=== PATIENT | female | born 1990 | race Caucasian/White ===

== ENCOUNTER 2020-06-02 15:04 | Emergency (ER) | payer MEDICARE, MEDICAID ==
[2020-06-02] MEDS ORDERED: METHYLPREDNISOLONE INJ 125 MG/2 ML SDV IV ONE (15:16)
[2020-06-02] MEDS ORDERED: FAMOTIDINE INJ/PF 20 MG/2 ML SDV IV ONE (15:16)
[2020-06-02] MEDS ORDERED: DIPHENHYDRAMINE HCL 50 MG/ML VIAL IV ONE (15:16)
--- NOTE | 2020-06-02 15:33 | ER Document Report ---
ED General - General Chief Complaint: Allergic Reaction Stated Complaint: POSSIBLE ALLERGIC REACTION Time Seen by Provider: 06/02/20 15:10 Primary Care Provider: CAROLINA BEYER MD [Primary Care Provider] - Follow up as needed DARRIN BECKER MD [COMMUNITY BASED STAFF] - Follow up as needed - HPI Notes: 30-year-old female presents to the emergency room today for complaints of systemic hives that started last night around 9:30 PM. She reports that she is allergic to shellfish and last night they did have salmon for dinner, she thinks there was some cross-contamination. She reports she has itchy rash all over her body. Patient only had children's Benadryl at home, which is 12.5 mg and 5 mL and she took 5 mL last night without a lot of relief, she took another 10 mL this morning and again at 11 AM. Last menstrual cycle was 03/10/2020. Denies fevers, chills, chest pain,palpitations, shortness of breath, dyspnea, nausea, vomiting, diarrhea, abdominal pain, hematuria,blurred vision, double vision, loss of vision, speech changes, LH, dizziness, syncope, headaches, wheezing, ST, URI, neck pain, weakness, bowel or bladder dysfunction, saddle anesthesia, numbness or tingling in bilateral upper or lower extremities equally, muscle paralysis, weakness in bilateral upper or lower extremities equally or rash. Denies IV drug use. - Related Data Allergies/Adverse Reactions: No Known Allergies Allergy (Unverified 06/02/20 16:17) Past Medical History - General Information source: Patient - Social History Smoking Status: Never Smoker Family History: Reviewed & Not Pertinent Review of Systems - Review of Systems Constitutional: No symptoms reported EENT: No symptoms reported Cardiovascular: No symptoms reported Respiratory: No symptoms reported Gastrointestinal: No symptoms reported Genitourinary: No symptoms reported Female Genitourinary: No symptoms reported Musculoskeletal: No symptoms reported Skin: See HPI Hematologic/Lymphatic: No symptoms reported Neurological/Psychological: No symptoms reported Physical Exam - Vital signs Vitals: Temp 98.4 F 06/02/20 15:05 - Notes Notes: MEDICATIONS: I agree with the patient medications as charted by the RN. ALLERGIES: I agree with the allergies as charted by the RN. PAST MEDICAL HISTORY/PAST SURGICAL HISTORY: Reviewed and agree as charted by RN. SOCIAL HISTORY: Reviewed and agree as charted by RN. FAMILY HISTORY: No significant familial comorbid conditions directly related to patient complaint EXAM: Reviewed vital signs as charted by RN. PHYSICAL EXAMINATION: reviewed vital signs by RN GENERAL: Well-appearing, well-nourished and in no acute distress. HEAD: Atraumatic, normocephalic. EYES: Pupils equal round and reactive to light, extraocular movements intact, conjunctiva are normal. ENT: Nares patent, oropharynx clear without exudates. Moist mucous membranes. NECK: Normal range of motion, supple without lymphadenopathy LUNGS: Breath sounds clear to auscultation bilaterally and equal. No wheezes rales or rhonchi. HEART: Regular rate and rhythm without murmurs ABDOMEN: Soft, nontender, nondistended abdomen. No guarding, no rebound. No masses appreciated. Female : deferred Musculoskeletal: Normal range of motion, no pitting or edema. No cyanosis. NEUROLOGICAL: Cranial nerves grossly intact. Normal speech, normal gait. Normal sensory, motor exams PSYCH: Normal mood, normal affect. SKIN: Warm, Dry, normal turgor, no lesions noted. Systemic urticaria on extremities, trunk, back and face. no open wounds or drainage. Course - Re-evaluation Re-evalutation: 06/02/20 19:03 Afebrile, vital stable no distress. Nurses notes reviewed. Urine hCG negative. Patient received 125 Solu-Medrol, 50 mg of Benadryl, 20 mg of Pepcid all IV. After 1 hour, patient states her itching has completely resolved itself. The hives have diminished. Patient still denies any shortness of breath, difficulty breathing, pain. Discussed with patient that I will send her home with a prescription for prednisone, Benadryl and pepcid Discussed with her that she should avoid any of the salmon that she ate last night if she had leftovers, have a family member handle it that is not allergic to shellfish or seafood. Advised to return to the emergency room if he experiences any shortness of breath, difficulty breathing, chest pain. Work note has been given. After performing a Medical Screening Examination, I estimate there is LOW risk for any life threatening rash. At this time the patient looks extremely well and there are no signs of systemic infection, however this may change at any time and the rash may change. I have reevaluated this patient multiple times and no significant life threatening changes are noted. The patient and I have discussed the diagnosis and risks, and we agree with discharging home with close follow-up with the understanding that symptoms and presentations can change. We also discussed returning to the Emergency Department immediately if new or worsening symptoms occur. We have discussed the symptoms which are most concerning (e.g., changing or worsening pain, fever, numbness, weakness, cool or painful digits) that necessitate immediate return. - Vital Signs Vital signs: Temp Pulse Resp BP Pulse Ox 98.5 F 66 18 116/98 H 100 06/02/20 17:20 06/02/20 17:20 06/02/20 17:20 06/02/20 17:20 06/02/20 17:20 - Laboratory Results Critical Laboratory Results Reviewed: No Critical Results - Radiology Results Critical Radiology Results Reviewed: No Critical Results Discharge - Discharge Clinical Impression: Allergic reaction Condition: Stable Disposition: HOME, SELF-CARE Instructions: Acute Allergic Reaction ([facility]) Additional Instructions: You were seen today for hives. This can be either allergic, autoimmune, or environmental in origin. You can continue to take benadryl 25mg up to 3 times daily as needed for itching. Take oral prednisone and famotidine as directed that correctly. IF YOU DEVELOP DIFFICULTY BREATHING, SPREADING OF HIVES, VOMITING, LIGHTHEADEDNESS, IMMEDIATELY AND CALL 911. Please follow-up with your primary care physician in the next 1-2 days. Return immediately for any new or worsening symptoms. Follow up with primary care provider, call tomorrow to make followup appointment. Prescriptions: Diphenhydramine HCl [Benadryl] 25 mg PO Q6HP PRN #30 capsule PRN Reason: Famotidine [Acid-Pep] 20 mg PO BID #60 tablet Prednisone [Deltasone 20 mg Tablet] 3 tab PO DAILY 5 Days #15 tablet Forms: Return to Work Referrals: CAROLINA BEYER MD [Primary Care Provider] - Follow up as needed DARRIN BECKER MD [COMMUNITY BASED STAFF] - Follow up as needed
[2020-06-02 17:22] VITALS: BP 116/98
== END 2020-06-02 17:22 | disposition home or self-care (01) ==
LOC: ER 15:04
DX: L50.0 Allergic urticaria (principal)
CPT/HCPCS: 99284; 96374; 96375; 81025; J1200; J2930; S0028